=== PATIENT | male | born 1995 | race Caucasian/White ===

== ENCOUNTER 2021-02-12 18:40 | Emergency (ER) | payer OTHER ==
[~2021-02-12] VITALS: Ht 177.8 cm; Wt 113.6 kg
--- NOTE | 2021-02-12 20:16 | REP ---
INDICATION: TRAUMA. COMPARISON: None. TECHNIQUE: Four views of the left thumb are provided. FINDINGS: Four views of the left thumb demonstrate mild soft tissue swelling and irregularity at the distal phalanx. No fracture or subluxation is seen. No opaque foreign body noted. IMPRESSION: Soft tissue swelling. No acute bony abnormality. <Electronically signed by Rivera Stanford > 02/12/212011
[2021-02-12] MEDS ORDERED: BACITRACIN OINTMENT 30GM TUBE TOP STA (21:56)
[2021-02-12 22:19] VITALS: BP 145/68
== END 2021-02-12 22:20 | disposition home or self-care (01) ==
LOC: M ED 18:40
DX: S61.012A Laceration without foreign body of left thumb without damage to nail, initial encounter (principal); W26.8XXA Contact with other sharp object(s), not elsewhere classified, initial encounter; Y92.89 Other specified places as the place of occurrence of the external cause; Z88.3 Allergy status to other anti-infective agents